=== PATIENT | female | born 1990 | race Caucasian/White ===

== ENCOUNTER 2021-09-17 10:57 | Emergency (ER) | payer OTHER ==
[2021-09-17 12:42] LABS: #Eosinphils 0.3 10x3/uL (0.0-0.5); #Monocytes 0.4 10x3/uL (0.0-1.1); #Neutrophils 4.7 10x3/uL (1.5-8.4); %Basophils 0.6 % (0.0-2.0); %Eosinophils 3.8 % (0.0-6.0); %Lymphocytes 24.2 % (18.0-47.0); %Monocytes 5.3 % (0.0-10.0); %Neutrophils 65.7 % (40.0-75.0); Hemoglobin 10.8 g/dL (12.0-15.5); Mean Corpuscular HGB CONC 29.3 g/dL (32.0-36.0); Mean Corpuscular Hemoglobin 22.4 pg (27.0-33.0); Mean Corpuscular Volume 76.4 fl (81.6-98.3); Mean Platelet Volume 9.1 fl (7.4-10.4); Platelet Count 417 10x3/uL (150-450); RBC Distribution Width 16.3 % (11.5-14.5); Red Blood Cell (RBC) Count 4.83 10x6/uL (3.90-5.03); White Blood Cell (WBC) Count 7.1 10x3/uL (3.5-10.5)
[2021-09-17 12:56] LABS: INR-International Normal Ratio 3.1; PTT 43.2 sec (22.0-33.0); Prothrombin Time 32.1 sec (9.5-12.1)
[2021-09-17 14:12] LABS: Platelet Morphology Comment Appears Adequate
[2021-09-17 14:13] LABS: Elliptocytes SLIGHT = 2-5 cells (100X) (0-1/hpf)
[2021-09-17 14:14] LABS: Anisocytosis SLIGHT = 6-15 cells (100X) (0-5/hpf); Hypochromia SLIGHT = 6-15 cells (100X) (0-5/hpf); Macrocytosis SLIGHT = 6-15 cells (100X) (0-5/hpf); Microcytosis SLIGHT = 6-15 cells (100X) (0-5/hpf)
== END 2021-09-17 13:30 | disposition home or self-care (01) ==
LOC: CSHERS 10:57
DX: R79.89 Other specified abnormal findings of blood chemistry (principal); E03.9 Hypothyroidism, unspecified; I10 Essential (primary) hypertension; Z87.891 Personal history of nicotine dependence
CPT/HCPCS: 36415; 85025; 85610; 85730; 99284

== ENCOUNTER 2021-09-23 08:44 | Emergency (ER) | payer OTHER ==
[2021-09-23 10:29] LABS: #Eosinphils 0.4 10x3/uL (0.0-0.5); #Monocytes 0.5 10x3/uL (0.0-1.1); #Neutrophils 5.6 10x3/uL (1.5-8.4); %Basophils 0.2 % (0.0-2.0); %Eosinophils 4.2 % (0.0-6.0); %Lymphocytes 23.7 % (18.0-47.0); %Monocytes 5.9 % (0.0-10.0); %Neutrophils 65.7 % (40.0-75.0); Hemoglobin 10.9 g/dL (12.0-15.5); Mean Corpuscular HGB CONC 28.6 g/dL (32.0-36.0); Mean Corpuscular Hemoglobin 21.9 pg (27.0-33.0); Mean Corpuscular Volume 76.5 fl (81.6-98.3); Platelet Count 419 10x3/uL (150-450); RBC Distribution Width 16.4 % (11.5-14.5); Red Blood Cell (RBC) Count 4.98 10x6/uL (3.90-5.03); White Blood Cell (WBC) Count 8.6 10x3/uL (3.5-10.5)
[2021-09-23 10:45] LABS: ALT (SGPT) 18 U/L (8-55); AST (SGOT) 14 U/L (5-34); Albumin 3.7 g/dL (3.5-5.0); Alkaline Phosphatase 71 U/L (40-110); Anion Gap 10 mmol/L (10-20); BUN (Urea Nitrogen) 15 mg/dL (7.0-18.7); Bilirubin, Total 0.6 mg/dL (0.2-1.2); Calc. Creatinine Clearance 0 mL/min (70-130); Carbon Dioxide 26 mmol/L (22-29); Chloride 108 mmol/L (98-107); Globulin 4.1 g/dL (2.4-3.5); Glucose 121 mg/dL (70-105); Potassium 4.5 mmol/L (3.5-5.1); Protein, Total 7.8 g/dL (6.0-8.3); Sodium 139 mmol/L (136-145)
[2021-09-23] MEDS ORDERED: Promethazine HCl 25 MG/ML VIAL ONE (11:06)
[2021-09-23 11:20] LABS: Bilirubin Neg (Negative); Blood, Urine 150 (Negative); Clarity Slightly Cloudy (Clear); Glucose, Urine (Dipstick) Normal (Negative); Ketone, Urine Negative (Negative); Leukocyte 25 (Negative); Nitrite Negative (Negative); Protein, Urine (Dipstick) 15 mg/dl (Neg-Trace); Specific Gravity, Urine 1.025 (1.002-1.036); Urobilinogen Normal mg/dL (Less than 2)
[2021-09-23 11:27] LABS: Pregnancy Test - Urine (BHCG) Negative (Negative); Specific Gravity 1.025 (1.002-1.036)
[2021-09-23 11:28] LABS: BHCG - Serum Negative (NEGATIVE); Pregs Control Background? CLEAR/WHITE (CLR/WHITE); Pregs Control Bar Appear? YES (CONTROL BAR)
[2021-09-23 11:28] LABS: Pregu Control Background? CLEAR/WHITE (CLR/WHITE); Pregu Control Bar Appear? YES (CONTROL BAR)
[2021-09-23 11:33] LABS: Magnesium 2.2 mg/dL (1.6-2.6)
[2021-09-23 11:35] LABS: Hypochromia SLIGHT = 6-15 cells (100X) (0-5/hpf); Microcytosis SLIGHT = 6-15 cells (100X) (0-5/hpf); Platelet Morphology Comment Appears Adequate
[2021-09-23 11:46] LABS: Bacteria/HPF Rare-Few HPF (None Seen); Calcium Oxalate Crystals 3+ HPF (None Seen)
[2021-09-23] MEDS ORDERED: Morphine 4 MG/ML VIAL ONE (12:07)
[2021-09-23] MEDS ORDERED: Ondansetron PF 4 MG/2 ML Vial ONE (14:57)
== END 2021-09-23 15:35 | disposition home or self-care (01) ==
LOC: CSHERS 08:44
DX: I88.0 Nonspecific mesenteric lymphadenitis (principal); N83.202 Unspecified ovarian cyst, left side; R63.8 Other symptoms and signs concerning food and fluid intake; R11.2 Nausea with vomiting, unspecified; E03.9 Hypothyroidism, unspecified; I10 Essential (primary) hypertension; F17.210 Nicotine dependence, cigarettes, uncomplicated
CPT/HCPCS: 36415; 74177; 76856; 80053; 81003; 81015; 81025; 83605; 83735; 84703; 85025; 94760; 96365; 96366; 96372; 96375; J0500; J2270; J2405; J2550

== ENCOUNTER 2022-02-13 18:15 | Emergency (ER) | payer OTHER ==
[2022-02-13 20:15] LABS: BHCG - Serum Negative (NEGATIVE); Pregs Control Background? CLEAR/WHITE (CLR/WHITE); Pregs Control Bar Appear? YES (CONTROL BAR)
[2022-02-13 20:18] LABS: #Eosinphils 0.3 10x3/uL (0.0-0.5); #Monocytes 0.5 10x3/uL (0.0-1.1); #Neutrophils 7.2 10x3/uL (1.5-8.4); %Basophils 0.4 % (0.0-2.0); %Eosinophils 2.7 % (0.0-6.0); %Monocytes 5.2 % (0.0-10.0); %Neutrophils 71.4 % (40.0-75.0); Hemoglobin 11.2 g/dL (12.0-15.5); Mean Corpuscular HGB CONC 30.3 g/dL (32.0-36.0); Mean Platelet Volume 8.8 fl (7.4-10.4); Platelet Count 339 10x3/uL (150-450); RBC Distribution Width 15.2 % (11.5-14.5); Red Blood Cell (RBC) Count 4.87 10x6/uL (3.90-5.03); White Blood Cell (WBC) Count 10.1 10x3/uL (3.5-10.5)
[2022-02-13 20:21] LABS: INR-International Normal Ratio 2.4; PTT 41.3 sec (22.0-33.0); Prothrombin Time 25.2 sec (9.5-12.1)
[2022-02-13 20:22] LABS: ALT (SGPT) 24 U/L (8-55); AST (SGOT) 21 U/L (5-34); Albumin 3.8 g/dL (3.5-5.0); Alkaline Phosphatase 59 U/L (40-110); Anion Gap 12 mmol/L (10-20); BUN (Urea Nitrogen) 16 mg/dL (7.0-18.7); Bilirubin, Total 0.6 mg/dL (0.2-1.2); Calc. Creatinine Clearance 0 mL/min (70-130); Calcium 9.1 mg/dL (7.8-10.44); Carbon Dioxide 25 mmol/L (22-29); Chloride 103 mmol/L (98-107); Globulin 3.9 g/dL (2.4-3.5); Glucose 127 mg/dL (70-105); Potassium 3.7 mmol/L (3.5-5.1); Protein, Total 7.7 g/dL (6.0-8.3); Sodium 136 mmol/L (136-145)
== END 2022-02-13 20:29 | disposition home or self-care (01) ==
LOC: CSHERS 18:15
DX: N92.6 Irregular menstruation, unspecified (principal); E03.9 Hypothyroidism, unspecified; I10 Essential (primary) hypertension; F17.210 Nicotine dependence, cigarettes, uncomplicated; Z79.899 Other long term (current) drug therapy
CPT/HCPCS: 36415; 70450; 76856; 80053; 84703; 85025; 85610; 85730; 86850; 86900; 86901

== ENCOUNTER 2023-06-26 06:10 | Emergency (ER) | payer BC, OTHER ==
[2023-06-26] MEDS ORDERED: Mineral Oil ENEMA ONE (06:44)
== END 2023-06-26 08:24 | disposition home or self-care (01) ==
LOC: CSHERS 06:10
DX: K59.00 Constipation, unspecified (principal); I11.0 Hypertensive heart disease with heart failure; I50.9 Heart failure, unspecified; E03.9 Hypothyroidism, unspecified; Z87.891 Personal history of nicotine dependence
CPT/HCPCS: 99283

== ENCOUNTER 2023-08-08 19:54 | Emergency (ER) | payer BC, SELFPAY ==
[2023-08-08 22:17] LABS: SARS-CoV-2 NAA Rapid Test Not Detected (NotDetected)
== END 2023-08-08 22:30 | disposition home or self-care (01) ==
LOC: CSHERS 19:54
DX: J18.9 Pneumonia, unspecified organism (principal); E03.9 Hypothyroidism, unspecified; I10 Essential (primary) hypertension; Z87.891 Personal history of nicotine dependence; Z20.822 Contact with and (suspected) exposure to COVID-19
CPT/HCPCS: 71046; 87081; 87430

== ENCOUNTER 2023-09-30 12:35 | Emergency (ER) | payer SELFPAY ==
[2023-09-30] MEDS ORDERED: Ondansetron ODT 4 MG TAB ONE (13:13)
[2023-09-30] MEDS ORDERED: Acetaminophen 500 MG TAB ONE (13:14)
[2023-09-30 15:35] LABS: SARS-CoV-2 NAA Rapid Test Not Detected (NotDetected)
== END 2023-09-30 16:00 | disposition home or self-care (01) ==
LOC: CSHERS 12:35
DX: A08.4 Viral intestinal infection, unspecified (principal); I10 Essential (primary) hypertension; Z87.891 Personal history of nicotine dependence
CPT/HCPCS: 99284; Q0162

== ENCOUNTER 2023-10-29 07:34 | Emergency (ER) | payer BC, SELFPAY ==
[2023-10-29] MEDS ORDERED: Acetaminophen 500 MG TAB ONE (08:30)
[2023-10-29 08:52] LABS: INR-International Normal Ratio 2.7; PTT 46.3 sec (22.0-33.0); Prothrombin Time 28.9 sec (9.5-12.1)
== END 2023-10-29 09:13 | disposition home or self-care (01) ==
LOC: CSHERS 07:34
DX: J02.9 Acute pharyngitis, unspecified (principal); I10 Essential (primary) hypertension; Z87.891 Personal history of nicotine dependence
CPT/HCPCS: 36415; 85610; 85730; 87081; 87430; 99283

== ENCOUNTER 2024-03-16 08:46 | Emergency (ER) | payer BC | END 2024-03-16 09:30 | disposition home or self-care (01) | LOC: CSHERS 08:46 | DX: R79.83 Abnormal findings of blood amino-acid level (principal); I11.0 Hypertensive heart disease with heart failure; I50.9 Heart failure, unspecified; Z87.891 Personal history of nicotine dependence; Z79.899 Other long term (current) drug therapy; Z79.82 Long term (current) use of aspirin | CPT/HCPCS: 99283 ==